=== PATIENT | male | born 1955 | race African-American/Black ===

== ENCOUNTER 2019-11-12 08:04 | Emergency (ER) | payer MEDICARE, SELFPAY ==
[2019-11-12] MEDS ORDERED: Ketorolac Tromethamine 30 MG/ML VIAL ONE (08:48)
--- NOTE | 2019-11-12 09:23 | RAD ---
RADIOGRAPH RIGHT HAND 3VIEWS: DATE: 11/12/2019 HISTORY: 64-year-old male with nontraumatic right hand pain FINDINGS: There is no evidence of fracture or dislocation. There is no evidence of periostitis, permeative lesi on, osteolytic lesion, or osteoblastic lesion. There are mild degenerative changes at the first CMC, first MCP, and all of the DIPs. The rest of the joints appear normal, with no erosions. There ar e no soft tissue calcifications. There is diffuse soft tissue swelling. IMPRESSION: 1. Mild osteoarthrosis. 2. No major osseous abnormalities. 3. Soft tissue swelling.
== END 2019-11-12 10:05 | disposition home or self-care (01) ==
LOC: ERS 08:04
DX: M19.041 Primary osteoarthritis, right hand (principal)
CPT/HCPCS: 96372; J1885

== ENCOUNTER 2020-03-25 09:54 | Outpatient (CLI) | payer MEDICARE ==
--- NOTE | 2020-03-25 10:39 | RAD ---
PA AND LATERAL VIEWS CHEST: Date: 03/25/2020 HISTORY: Chronic obstructive pulmonary disease. FINDINGS: Comparison made with exam of 02/26/2020. The heart size is normal. The aorta is tortuous. The lungs well expanded without lobar consolidation, pneumothoraces, or pleural effusions. There are degenerative changes in the spine. IMPRESSION: No radiographic evidence of acute cardiopulmonary process. POS: AH
--- NOTE | 2020-03-25 10:45 | RAD ---
LUMBAR SPINE 2 VIEWS: Date: 03/25/2020 HISTORY: Low back pain. COMPARISON: 08/21/2016. FINDINGS: Five lumbar-type vertebra are again seen. Multilevel degenerative changes are present, more prominent in the lower lumbar spine. No acute fracture, subluxation, or bony destruction is identified. IMPRESSION: Lumbar spondylosis. POS: AH
== END 2020-03-25 09:55 | disposition home or self-care (01) ==
LOC: BICRAD 09:54
PROVIDERS: ATTEND Specialist
DX: J44.9 Chronic obstructive pulmonary disease, unspecified (principal); M54.5 Low back pain; M47.816 Spondylosis without myelopathy or radiculopathy, lumbar region
CPT/HCPCS: 71046; 72100

== ENCOUNTER 2020-11-25 09:34 | Inpatient (IN) | payer MEDICARE ==
[2020-11-25 10:26] LABS: #Lymphocytes 2.8 thou/uL (1.20-3.40); #Monocytes 0.7 thou/uL (0.11-0.59); %Basophils 0.4 % (0.0-1.0); %Eosinophils 0.1 % (0.0-10.0); %Lymphocytes 26.5 % (21.0-51.0); %Monocytes 6.6 % (0.0-10.0); %Neutrophils 66.3 % (42.0-75.0); Hemoglobin 16.6 g/dL (14.0-18.0); Mean Corpuscular HGB CONC 31.4 g/dL (32.0-36.0); Mean Corpuscular Hemoglobin 29.3 pg (27.0-31.0); Mean Corpuscular Volume 93.3 fL (78.0-98.0); Mean Platelet Volume 6.8 fL (7.4-10.4); Platelet Count 545 thou/uL (130-400); RBC Distribution Width 12.9 % (11.5-14.5); Red Blood Cell (RBC) Count 5.68 mill/uL (4.70-6.10); White Blood Cell (WBC) Count 10.5 thou/uL (4.8-10.8)
[2020-11-25 10:36] LABS: ALT (SGPT) 50 U/L (8-55); AST (SGOT) 33 U/L (5-34); Albumin 4.4 g/dL (3.4-4.8); Alkaline Phosphatase 104 U/L (40-110); Anion Gap 12 mmol/L (10-20); BUN (Urea Nitrogen) 13 mg/dL (8.4-25.7); Bilirubin, Total 0.8 mg/dL (0.2-1.2); Calc. Creatinine Clearance 0 mL/min (70-130); Calcium 9.7 mg/dL (7.8-10.44); Carbon Dioxide 22 mmol/L (23-31); Chloride 107 mmol/L (98-107); Globulin 4.1 g/dL (2.4-3.5); Glucose 102 mg/dL (80-115); Potassium 4.1 mmol/L (3.5-5.1); Protein, Total 8.5 g/dL (5.8-8.1); Sodium 137 mmol/L (136-145)
[2020-11-25] MEDS ORDERED: Acetaminophen 325 MG TAB PO PRN (11:04)
[2020-11-25] MEDS ORDERED: Ondansetron PF 4 MG/2 ML Vial IVP PRN (11:04)
[2020-11-25] MEDS ORDERED: Ondansetron ODT 4 MG TAB PO PRN (11:04)
[2020-11-25] MEDS ORDERED: Calcium Carbonate 500 MG ChewTAB PO PRN (11:04)
[2020-11-25] MEDS ORDERED: Labetalol HCl 100 MG/20 ML VIAL SLOW IVP PRN (11:05)
[2020-11-25] MEDS ORDERED: Aspirin Chewable 81 MG TAB ONE (11:12)
[2020-11-25] MEDS ORDERED: Sodium Chloride 0.9% 1,000 ML IV SCH (11:15)
[2020-11-25 11:17] LABS: Bacteria/HPF None Seen HPF (None Seen); Bilirubin Negative (Negative); Blood, Urine Negative (Negative); Clarity Clear (Clear); Glucose, Urine (Dipstick) Normal (Negative); Ketone, Urine Trace mg/dL (Negative); Leukocyte Negative Leu/uL (Negative); Nitrite Negative (Negative); Protein, Urine (Dipstick) 70 mg/dL (Neg-Trace); RBC/HPF 0-3 HPF (0-3); Specific Gravity, Urine 1.028 (1.002-1.036); Squamous Epithelial None Seen HPF (0-3); Urobilinogen Normal mg/dL (Less than 2); WBC/HPF 0-3 HPF (0-3); pH, Urine 5.5 (5.0-9.0)
[2020-11-25 11:36] LABS: PTT 30.5 sec (22.9-36.1); Prothrombin Time 13.3 sec (12.0-14.7)
[2020-11-25] MEDS ORDERED: Lorazepam 2 MG/ML VIAL ONE (11:36)
[2020-11-25] MEDS ORDERED: Clopidogrel Bisulfate 75 MG TAB PO SCH (13:15)
[2020-11-25] MEDS ORDERED: Clopidogrel Bisulfate 75 MG TAB ONE (14:53)
[2020-11-25 17:27] LABS: SARS-CoV-2 NAA Rapid Test Not Detected (NotDetected)
[2020-11-25] MEDS ORDERED: Famotidine 20 MG TAB ONE (20:59)
[2020-11-25] MEDS ORDERED: Metoprolol Tartrate 25 MG TAB ONE (20:59)
[2020-11-25] MEDS ORDERED: Metoprolol Tartrate 25 MG TAB PO SCH (21:00)
[2020-11-25] MEDS: Atorvastatin Calcium 40 MG TAB PO SCH (21:51)
[2020-11-25] MEDS: Famotidine 20 MG TAB PO SCH (21:51)
[2020-11-25 23:56] VITALS: BMI 27.3
[2020-11-26 05:56] LABS: Cardiac Risk 3.9 (Less than 4.5)
[2020-11-26] MEDS ORDERED: Enoxaparin Sodium 40 MG/0.4 ML SYRINGE SC SCH (09:00)
[2020-11-26] MEDS ORDERED: Aspirin 325 mg Enteric Coated Tablet PO SCH (09:00)
[2020-11-26] MEDS ORDERED: Aspirin 81 mg Enteric Coated Tablet PO SCH (09:00)
[2020-11-26] MEDS ORDERED: Enoxaparin Sodium 30 MG/0.3 ML SYRINGE SC SCH (09:00)
[2020-11-26] MEDS: Multivit, Therapeutic 1 TAB PO SCH (09:26)
[2020-11-26] MEDS: Clopidogrel Bisulfate 75 MG TAB PO SCH (09:26)
[2020-11-26] MEDS: Aspirin 81 mg Enteric Coated Tablet PO SCH (09:26)
[2020-11-26] MEDS: Famotidine 20 MG TAB PO SCH ×2 (09:27→20:52)
[2020-11-26] MEDS: Metoprolol Tartrate 25 MG TAB PO SCH ×2 (09:27→20:53)
[2020-11-26] MEDS: Atorvastatin Calcium 40 MG TAB PO SCH (20:53)
[2020-11-26] MEDS ORDERED: Melatonin 3 MG TAB PO PRN (21:00)
[2020-11-27] MEDS: Famotidine 20 MG TAB PO SCH (08:56)
[2020-11-27] MEDS: Clopidogrel Bisulfate 75 MG TAB PO SCH (08:56)
[2020-11-27] MEDS: Multivit, Therapeutic 1 TAB PO SCH (08:56)
[2020-11-27] MEDS: Aspirin 81 mg Enteric Coated Tablet PO SCH (08:56)
[2020-11-27] MEDS: Metoprolol Tartrate 25 MG TAB PO SCH (08:57)
[2020-11-27] MEDS ORDERED: Enoxaparin Sodium 40 MG/0.4 ML SYRINGE SC SCH (09:00)
[2020-11-27 11:39] VITALS: BP 119/78; TEMP 98.9
== END 2020-11-27 12:20 | disposition home or self-care (01) | DRG 65 ==
LOC: ERS 09:34 → ERHOLD 11:12 → OBSVTOIN 12:40 → 2SE 23:31
PROVIDERS: ADMIT Internal Medicine; ATTEND Internal Medicine
DX: I63.9 Cerebral infarction, unspecified (principal); G81.91 Hemiplegia, unspecified affecting right dominant side; R47.01 Aphasia; Z20.822 Contact with and (suspected) exposure to COVID-19; R29.704 NIHSS score 4; R29.810 Facial weakness; R13.10 Dysphagia, unspecified; E78.00 Pure hypercholesterolemia, unspecified; I10 Essential (primary) hypertension; K21.9 Gastro-esophageal reflux disease without esophagitis; K58.9 Irritable bowel syndrome, unspecified; M19.90 Unspecified osteoarthritis, unspecified site; G89.29 Other chronic pain; D47.3 Essential (hemorrhagic) thrombocythemia; Z91.81 History of falling; Z79.82 Long term (current) use of aspirin; Z79.891 Long term (current) use of opiate analgesic; Z79.899 Other long term (current) drug therapy
CPT/HCPCS: 0240U; 36415; 36416; 70450; 70551; 71045; 80053; 80061; 81003; 81015; 82607; 82746; 83735; 84484; 85025; 85610; 85730; 93005; 93306; 93880; 94760; 96374; G0378; J1650; J2060

== ENCOUNTER 2020-12-24 10:57 | Emergency (ER) | payer MEDICARE | END 2020-12-24 13:01 | LOC: ERS 10:57 | DX: Z53.21 Procedure and treatment not carried out due to patient leaving prior to being seen by health care provider (principal) ==

== ENCOUNTER 2020-12-25 07:04 | Emergency (ER) | payer MEDICARE | END 2020-12-25 09:40 | disposition home or self-care (01) | LOC: ERS 07:04 | DX: N40.1 Benign prostatic hyperplasia with lower urinary tract symptoms (principal); R33.8 Other retention of urine; E78.5 Hyperlipidemia, unspecified; I10 Essential (primary) hypertension | CPT/HCPCS: 99283 ==

== ENCOUNTER 2020-12-28 17:55 | Emergency (ER) | payer MEDICARE ==
[2020-12-28] MEDS ORDERED: Ibuprofen 800 MG TAB ONE (18:38)
[2020-12-28 18:40] LABS: Bilirubin Negative (Negative); Blood, Urine 2+ (Negative); Clarity Turbid (Clear); Glucose, Urine (Dipstick) Normal (Negative); Ketone, Urine Negative (Negative); Leukocyte 500 Leu/uL (Negative); Nitrite Negative (Negative); Protein, Urine (Dipstick) 20 mg/dL (Neg-Trace); RBC/HPF 21-50 HPF (0-3); Specific Gravity, Urine 1.014 (1.002-1.036); Squamous Epithelial None Seen HPF (0-3); Urobilinogen Normal mg/dL (Less than 2); WBC/HPF Greater than 50 HPF (0-3)
[2020-12-28 18:41] LABS: Bacteria/HPF 1+ HPF (None Seen)
[2020-12-28] MEDS ORDERED: cefTRIAXone\\ROCEPHIN 500 MG VIAL ONE (19:29)
[2020-12-28] MEDS ORDERED: Lidocaine 1% PF 5 ML VIAL ONE (19:29)
== END 2020-12-28 20:47 | disposition home or self-care (01) ==
LOC: ERS 17:55
DX: N40.1 Benign prostatic hyperplasia with lower urinary tract symptoms (principal); R33.8 Other retention of urine; N13.8 Other obstructive and reflux uropathy; N39.0 Urinary tract infection, site not specified; Z86.73 Personal history of transient ischemic attack (TIA), and cerebral infarction without residual deficits; E78.5 Hyperlipidemia, unspecified; I10 Essential (primary) hypertension
CPT/HCPCS: 81003; 81015; 87077; 87086; 87186; J0696

== ENCOUNTER 2020-12-30 16:02 | Inpatient (IN) | payer MEDICARE ==
[~2020-12-30 16:02] MED LIST: Iopamidol-370 76% 500 ML 1 ML ONE
[2020-12-30 16:24] LABS: #Basophils 0.2 thou/uL (0.0-0.2); #Eosinphils 0.1 thou/uL (0.0-0.7); #Lymphocytes 1.7 thou/uL (1.20-3.40); #Monocytes 0.2 thou/uL (0.11-0.59); #Neutrophils 13.1 thou/uL (1.40-6.50); %Basophils 1.6 % (0.0-1.0); %Eosinophils 0.7 % (0.0-10.0); %Lymphocytes 11.2 % (21.0-51.0); %Monocytes 1.4 % (0.0-10.0); %Neutrophils 85.1 % (42.0-75.0); Hemoglobin 14.9 g/dL (14.0-18.0); Mean Corpuscular HGB CONC 33.6 g/dL (32.0-36.0); Mean Corpuscular Hemoglobin 31.4 pg (27.0-31.0); Mean Corpuscular Volume 93.4 fL (78.0-98.0); Platelet Count 439 thou/uL (130-400); Red Blood Cell (RBC) Count 4.74 mill/uL (4.70-6.10); White Blood Cell (WBC) Count 15.4 thou/uL (4.8-10.8)
[2020-12-30 16:33] LABS: INR-International Normal Ratio 1.1; Prothrombin Time 13.7 sec (12.0-14.7)
[2020-12-30 16:34] LABS: PTT 27.6 sec (22.9-36.1)
[2020-12-30 16:44] LABS: ALT (SGPT) 44 U/L (8-55); AST (SGOT) 37 U/L (5-34); Albumin 3.9 g/dL (3.4-4.8); Alkaline Phosphatase 92 U/L (40-110); Anion Gap 15 mmol/L (10-20); BUN (Urea Nitrogen) 12 mg/dL (8.4-25.7); Bilirubin, Total 0.8 mg/dL (0.2-1.2); Calc. Creatinine Clearance 0 mL/min (70-130); Calcium 9.6 mg/dL (7.8-10.44); Carbon Dioxide 23 mmol/L (23-31); Chloride 105 mmol/L (98-107); Globulin 4.1 g/dL (2.4-3.5); Glucose 118 mg/dL (80-115); Potassium 3.8 mmol/L (3.5-5.1); Sodium 139 mmol/L (136-145)
[2020-12-30 19:50] LABS: Troponin I Less than 0.010 ng/mL (< 0.028)
[2020-12-30] MEDS ORDERED: Acetaminophen 325 MG Suppository ONE (19:50)
[2020-12-30] MEDS ORDERED: Acetaminophen 325 MG TAB PO PRN (22:01)
[2020-12-30] MEDS ORDERED: Ondansetron PF 4 MG/2 ML Vial IVP PRN (22:01)
[2020-12-30 22:59] LABS: Troponin I Less than 0.010 ng/mL (< 0.028)
[2020-12-30] MEDS: Sodium Chloride 0.9% 1,000 ML IV SCH (23:48)
[2020-12-31 07:50] LABS: #Eosinphils 0.1 thou/uL (0.0-0.7); #Lymphocytes 1.9 thou/uL (1.20-3.40); #Monocytes 1.2 thou/uL (0.11-0.59); %Basophils 0.2 % (0.0-1.0); %Eosinophils 0.4 % (0.0-10.0); %Lymphocytes 10.4 % (21.0-51.0); %Monocytes 6.6 % (0.0-10.0); %Neutrophils 82.3 % (42.0-75.0); Hemoglobin 12.8 g/dL (14.0-18.0); Mean Corpuscular Hemoglobin 30.9 pg (27.0-31.0); Mean Corpuscular Volume 93.7 fL (78.0-98.0); Platelet Count 413 thou/uL (130-400); Red Blood Cell (RBC) Count 4.14 mill/uL (4.70-6.10); White Blood Cell (WBC) Count 18.2 thou/uL (4.8-10.8)
[2020-12-31 08:10] LABS: ALT (SGPT) 37 U/L (8-55); AST (SGOT) 42 U/L (5-34); Albumin 3.3 g/dL (3.4-4.8); Alkaline Phosphatase 76 U/L (40-110); Anion Gap 11 mmol/L (10-20); BUN (Urea Nitrogen) 8 mg/dL (8.4-25.7); Bilirubin, Total 0.8 mg/dL (0.2-1.2); Calc. Creatinine Clearance 113 mL/min (70-130); Calcium 8.5 mg/dL (7.8-10.44); Carbon Dioxide 23 mmol/L (23-31); Chloride 107 mmol/L (98-107); Globulin 3.4 g/dL (2.4-3.5); Glucose 91 mg/dL (80-115); Potassium 3.4 mmol/L (3.5-5.1); Protein, Total 6.7 g/dL (5.8-8.1); Sodium 138 mmol/L (136-145)
[2020-12-31] MEDS ORDERED: cefTRIAXone\\ROCEPHIN 1 GM VIAL ONE (09:04)
[2020-12-31] MEDS: cefTRIAXone\\ROCEPHIN 1 GM in Sodium Chloride 0.9% 100 ML IVPB SCH (09:29)
[2020-12-31 11:42] LABS: SARS-CoV-2 NAA Rapid Test Not Detected (NotDetected)
[2020-12-31] MEDS: Sodium Chloride 0.9% 1,000 ML IV SCH (12:24)
[2020-12-31] MEDS ORDERED: Acetaminophen 325 MG TAB ONE (14:56)
[2021-01-01] MEDS: Atorvastatin Calcium 40 MG TAB PO SCH ×2 (01:00→21:28)
[2021-01-01] MEDS: Sodium Chloride 0.9% 1,000 ML IV SCH ×2 (01:01→20:00)
[2021-01-01 06:47] LABS: Anion Gap 13 mmol/L (10-20); BUN (Urea Nitrogen) 8 mg/dL (8.4-25.7); Calc. Creatinine Clearance 122 mL/min (70-130); Calcium 8.7 mg/dL (7.8-10.44); Carbon Dioxide 22 mmol/L (23-31); Chloride 107 mmol/L (98-107); Glucose 93 mg/dL (80-115); Potassium 3.7 mmol/L (3.5-5.1); Sodium 138 mmol/L (136-145)
[2021-01-01] MEDS: cefTRIAXone\\ROCEPHIN 1 GM in Sodium Chloride 0.9% 100 ML IVPB SCH (09:42)
[2021-01-01] MEDS: Phenazopyridine HCl 100 MG TAB PO SCH ×3 (10:57→18:17)
[2021-01-01 11:27] VITALS: BMI 26.5
[2021-01-01] MEDS ORDERED: ELMIRON FS SCH (21:00)
[2021-01-02 07:34] LABS: #Basophils 0.1 thou/uL (0.0-0.2); #Eosinphils 0.1 thou/uL (0.0-0.7); #Lymphocytes 2.2 thou/uL (1.20-3.40); #Monocytes 1.7 thou/uL (0.11-0.59); #Neutrophils 8.5 thou/uL (1.40-6.50); %Basophils 0.4 % (0.0-1.0); %Lymphocytes 17.3 % (21.0-51.0); %Monocytes 13.8 % (0.0-10.0); %Neutrophils 67.4 % (42.0-75.0); Hemoglobin 12.6 g/dL (14.0-18.0); Mean Corpuscular HGB CONC 33.2 g/dL (32.0-36.0); Mean Corpuscular Hemoglobin 30.8 pg (27.0-31.0); Mean Corpuscular Volume 92.7 fL (78.0-98.0); Mean Platelet Volume 6.7 fL (7.4-10.4); Platelet Count 416 thou/uL (130-400); RBC Distribution Width 13.1 % (11.5-14.5); Red Blood Cell (RBC) Count 4.08 mill/uL (4.70-6.10); White Blood Cell (WBC) Count 12.6 thou/uL (4.8-10.8)
[2021-01-02 07:59] LABS: AST (SGOT) 65 U/L (5-34); Bilirubin, Total 0.9 mg/dL (0.2-1.2); Calcium 8.4 mg/dL (7.8-10.44); Chloride 106 mmol/L (98-107); Potassium 3.5 mmol/L (3.5-5.1); Sodium 138 mmol/L (136-145)
[2021-01-02 08:03] LABS: ALT (SGPT) 48 U/L (8-55); Albumin 3.2 g/dL (3.4-4.8); Alkaline Phosphatase 69 U/L (40-110); Anion Gap 14 mmol/L (10-20); BUN (Urea Nitrogen) 6 mg/dL (8.4-25.7); Calc. Creatinine Clearance 127 mL/min (70-130); Carbon Dioxide 22 mmol/L (23-31); Globulin 3.1 g/dL (2.4-3.5); Glucose 88 mg/dL (80-115); Protein, Total 6.3 g/dL (5.8-8.1)
[2021-01-02] MEDS ORDERED: Tamsulosin HCl 0.4 MG CAP PO SCH (09:00)
[2021-01-02] MEDS: Phenazopyridine HCl 100 MG TAB PO SCH ×3 (09:31→17:45)
[2021-01-02] MEDS: cefTRIAXone\\ROCEPHIN 1 GM in Sodium Chloride 0.9% 100 ML IVPB SCH (09:32)
[2021-01-02] MEDS: Tamsulosin HCl 0.4 MG CAP PO SCH ×2 (09:32→22:17)
[2021-01-02] MEDS ORDERED: Clopidogrel Bisulfate 75 MG TAB PO SCH (17:30)
[2021-01-02] MEDS ORDERED: Aspirin 81 mg Enteric Coated Tablet PO SCH (17:30)
[2021-01-02] MEDS ORDERED: Finasteride 5 MG TAB PO SCH (21:00)
[2021-01-02] MEDS: Atorvastatin Calcium 40 MG TAB PO SCH (22:16)
[2021-01-03] MEDS: Phenazopyridine HCl 100 MG TAB PO SCH ×2 (08:58→13:07)
[2021-01-03] MEDS: Tamsulosin HCl 0.4 MG CAP PO SCH (08:58)
[2021-01-03] MEDS: cefTRIAXone\\ROCEPHIN 1 GM in Sodium Chloride 0.9% 100 ML IVPB SCH (09:00)
[2021-01-03] MEDS ORDERED: Clopidogrel Bisulfate 75 MG TAB PO SCH (09:00)
[2021-01-03] MEDS ORDERED: Aspirin 81 mg Enteric Coated Tablet PO SCH (09:00)
[2021-01-03 12:03] VITALS: TEMP 98.1
[2021-01-03 16:30] VITALS: BP 129/83
== END 2021-01-03 16:52 | disposition home or self-care (01) | DRG 62 ==
LOC: ERS 16:02 → ERHOLD 18:11 → 3SE 12-31 22:09
PROVIDERS: ADMIT Specialist; ATTEND Specialist
DX: I63.512 Cerebral infarction due to unspecified occlusion or stenosis of left middle cerebral artery (principal); N30.00 Acute cystitis without hematuria; T83.511A Infection and inflammatory reaction due to indwelling urethral catheter, initial encounter; N13.8 Other obstructive and reflux uropathy; Z20.822 Contact with and (suspected) exposure to COVID-19; R29.708 NIHSS score 8; E78.5 Hyperlipidemia, unspecified; I10 Essential (primary) hypertension; K21.9 Gastro-esophageal reflux disease without esophagitis; G89.29 Other chronic pain; M54.5 Low back pain; N40.1 Benign prostatic hyperplasia with lower urinary tract symptoms; R35.1 Nocturia; R33.8 Other retention of urine; E55.9 Vitamin D deficiency, unspecified; R29.810 Facial weakness; R47.02 Dysphasia; R47.81 Slurred speech; R47.01 Aphasia; T83.028A Displacement of other urinary catheter, initial encounter; Y84.6 Urinary catheterization as the cause of abnormal reaction of the patient, or of later complication, without mention of misadventure at the time of the procedure; Z87.891 Personal history of nicotine dependence; Z79.899 Other long term (current) drug therapy; Z79.82 Long term (current) use of aspirin; Z79.02 Long term (current) use of antithrombotics/antiplatelets
CPT/HCPCS: 36415; 51702; 70450; 70496; 70498; 70551; 71045; 80048; 80053; 81003; 81015; 84484; 85025; 85610; 85730; 87077; 87086; 87186; 93005; 94760; 95816; 95819; 95957; 96372; J0696; J2997; J3490; J7050; Q9967; U0002

== ENCOUNTER 2021-10-01 04:45 | Emergency (ER) | payer MEDICARE ==
[2021-10-01] MEDS ORDERED: Ketorolac Tromethamine 30 MG/ML VIAL ONE (05:00)
[2021-10-01 05:33] LABS: #Basophils 0.1 thou/uL (0.0-0.2); #Eosinphils 0.1 thou/uL (0.0-0.7); #Lymphocytes 3.6 thou/uL (1.20-3.40); #Monocytes 0.8 thou/uL (0.11-0.59); %Basophils 0.8 % (0.0-1.0); %Eosinophils 1.1 % (0.0-10.0); %Monocytes 7.8 % (0.0-10.0); %Neutrophils 52.4 % (42.0-75.0); Hemoglobin 17.7 g/dL (14.0-18.0); Mean Corpuscular HGB CONC 33.8 g/dL (32.0-36.0); Mean Corpuscular Hemoglobin 31.9 pg (27.0-31.0); Mean Corpuscular Volume 94.4 fL (78.0-98.0); Mean Platelet Volume 6.5 fL (7.4-10.4); Platelet Count 508 thou/uL (130-400); RBC Distribution Width 12.7 % (11.5-14.5); Red Blood Cell (RBC) Count 5.54 mill/uL (4.70-6.10); White Blood Cell (WBC) Count 9.5 thou/uL (4.8-10.8)
[2021-10-01 05:56] LABS: ALT (SGPT) 48 U/L (8-55); AST (SGOT) 42 U/L (5-34); Albumin 4.7 g/dL (3.4-4.8); Alkaline Phosphatase 119 U/L (40-110); Anion Gap 14 mmol/L (10-20); BUN (Urea Nitrogen) 10 mg/dL (8.4-25.7); Bilirubin, Total 1.1 mg/dL (0.2-1.2); Calc. Creatinine Clearance 0 mL/min (70-130); Calcium 9.3 mg/dL (7.8-10.44); Carbon Dioxide 25 mmol/L (23-31); Chloride 106 mmol/L (98-107); Globulin 3.8 g/dL (2.4-3.5); Glucose 91 mg/dL (80-115); Potassium 4.3 mmol/L (3.5-5.1); Protein, Total 8.5 g/dL (5.8-8.1); Sodium 141 mmol/L (136-145)
== END 2021-10-01 06:23 | disposition home or self-care (01) ==
LOC: ERS 04:45
DX: R07.89 Other chest pain (principal); I10 Essential (primary) hypertension; E78.5 Hyperlipidemia, unspecified; Z86.73 Personal history of transient ischemic attack (TIA), and cerebral infarction without residual deficits; Z79.899 Other long term (current) drug therapy
CPT/HCPCS: 36415; 71045; 80053; 84484; 85025; 93005; 96374; J1885

== ENCOUNTER 2022-02-09 13:53 | Emergency (ER) | payer MEDICARE ==
[2022-02-09 14:48] LABS: Bilirubin Negative (Negative); Blood, Urine Negative (Negative); Clarity Clear (Clear); Glucose, Urine (Dipstick) Normal (Negative); Ketone, Urine Negative (Negative); Leukocyte Negative Leu/uL (Negative); Nitrite Negative (Negative); Protein, Urine (Dipstick) Negative (Neg-Trace); Specific Gravity, Urine 1.015 (1.002-1.036); Urobilinogen Normal mg/dL (Less than 2); pH, Urine 6.5 (5.0-9.0)
[2022-02-09 15:07] LABS: #Lymphocytes 1.9 thou/uL (1.20-3.40); #Monocytes 0.4 thou/uL (0.11-0.59); #Neutrophils 7.5 thou/uL (1.40-6.50); %Basophils 0.1 % (0.0-1.0); %Eosinophils 0.3 % (0.0-10.0); %Lymphocytes 19.2 % (21.0-51.0); %Monocytes 4.3 % (0.0-10.0); %Neutrophils 76.1 % (42.0-75.0); Hemoglobin 15.7 g/dL (14.0-18.0); Mean Corpuscular HGB CONC 33.2 g/dL (32.0-36.0); Mean Corpuscular Hemoglobin 30.9 pg (27.0-31.0); Mean Platelet Volume 6.9 fL (7.4-10.4); Platelet Count 456 thou/uL (130-400); RBC Distribution Width 12.7 % (11.5-14.5); White Blood Cell (WBC) Count 9.8 thou/uL (4.8-10.8)
[2022-02-09 16:34] LABS: ALT (SGPT) 32 U/L (8-55); AST (SGOT) 27 U/L (5-34); Albumin 4.1 g/dL (3.4-4.8); Alkaline Phosphatase 107 U/L (40-110); Anion Gap 14 mmol/L (10-20); BUN (Urea Nitrogen) 6 mg/dL (8.4-25.7); Bilirubin, Total 0.9 mg/dL (0.2-1.2); Calc. Creatinine Clearance 0 mL/min (70-130); Calcium 9.2 mg/dL (7.8-10.44); Carbon Dioxide 21 mmol/L (23-31); Chloride 106 mmol/L (98-107); Estimated GFR 97; Globulin 3.5 g/dL (2.4-3.5); Glucose 86 mg/dL (80-115); Potassium 4.1 mmol/L (3.5-5.1); Protein, Total 7.6 g/dL (5.8-8.1); Sodium 137 mmol/L (136-145)
== END 2022-02-09 17:37 | disposition home or self-care (01) ==
LOC: ERS 13:53
DX: R33.9 Retention of urine, unspecified (principal); I10 Essential (primary) hypertension; E78.5 Hyperlipidemia, unspecified; Z79.899 Other long term (current) drug therapy
CPT/HCPCS: 36415; 51702; 80053; 81003; 85025

== ENCOUNTER 2022-06-12 13:26 | Outpatient (CLI) | payer MEDICARE ==
[2022-06-12 15:34] LABS: Hemoglobin 15.1 g/dL (13.5-17.5); Mean Corpuscular HGB CONC 33.6 g/dL (32.0-36.0); Mean Corpuscular Hemoglobin 30.3 pg (27.0-33.0); Mean Platelet Volume 9.5 fl (7.4-10.4); Platelet Count 486 10x3/uL (150-450); RBC Distribution Width 13.9 % (11.5-14.5); Red Blood Cell (RBC) Count 4.99 10x6/uL (4.32-5.72); White Blood Cell (WBC) Count 9.4 10x3/uL (3.5-10.5)
[2022-06-12 15:40] LABS: Prothrombin Time 10.8 sec (9.5-12.1)
[2022-06-12 15:42] LABS: Anion Gap 13 mmol/L (10-20); BUN (Urea Nitrogen) 11 mg/dL (8.4-25.7); Calc. Creatinine Clearance 0 mL/min (70-130); Calcium 9.4 mg/dL (7.8-10.44); Carbon Dioxide 24 mmol/L (23-31); Chloride 107 mmol/L (98-107); Estimated GFR 85; Glucose 96 mg/dL (80-115); Potassium 4.4 mmol/L (3.5-5.1); Sodium 140 mmol/L (136-145)
== END 2022-06-12 13:27 | disposition home or self-care (01) ==
LOC: LABBT 13:26
PROVIDERS: ATTEND Urology
DX: Z01.818 Encounter for other preprocedural examination (principal); N40.1 Benign prostatic hyperplasia with lower urinary tract symptoms; R33.8 Other retention of urine; N52.01 Erectile dysfunction due to arterial insufficiency; R97.20 Elevated prostate specific antigen [PSA]; Z86.73 Personal history of transient ischemic attack (TIA), and cerebral infarction without residual deficits
CPT/HCPCS: 80048; 85027; 85610; 85730; 87086; 93005; 93010

== ENCOUNTER 2022-06-23 06:33 | Day surgery (SDC) | payer MEDICARE ==
[2022-06-22 10:04] VITALS: BMI 26.9
[2022-06-23] MEDS ORDERED: Levofloxacin 500 mg/D5W 100 ml Premix Bag ONE (10:04)
[2022-06-23] MEDS ORDERED: Fentanyl 100 MCG/2 ML VIAL ONE (10:16)
== END 2022-06-23 10:38 | disposition home or self-care (01) ==
LOC: SDC 06:33
PROVIDERS: ATTEND Urology
DX: N40.1 Benign prostatic hyperplasia with lower urinary tract symptoms (principal); R33.8 Other retention of urine; N52.01 Erectile dysfunction due to arterial insufficiency; I10 Essential (primary) hypertension; Z53.09 Procedure and treatment not carried out because of other contraindication; Z86.73 Personal history of transient ischemic attack (TIA), and cerebral infarction without residual deficits; Z79.02 Long term (current) use of antithrombotics/antiplatelets; Z79.2 Long term (current) use of antibiotics; Z79.82 Long term (current) use of aspirin; Z79.899 Other long term (current) drug therapy
CPT/HCPCS: J1956; J3010

== ENCOUNTER 2022-06-29 10:35 | Day surgery (SDC) | payer MEDICARE ==
[2022-06-28 09:20] VITALS: BMI 26.7
[2022-06-29] MEDS ORDERED: Sodium Chloride 0.9% 100 ML ONE (13:20)
[2022-06-29] MEDS ORDERED: cefTRIAXone\\ROCEPHIN 1 GM VIAL ONE (13:20)
[2022-06-29] MEDS ORDERED: Lidocaine 1% MPF 2 ML VIAL ONE (13:20)
[2022-06-29] MEDS ORDERED: PROPOFOL 40 ML ONE (14:36)
[2022-06-29] MEDS ORDERED: Fentanyl 100 MCG/2 ML VIAL ONE (14:36)
[2022-06-29] MEDS ORDERED: Lidocaine 1% PF 5 ML VIAL ONE (14:52)
[2022-06-29] MEDS ORDERED: PROPOFOL 200 MG/20 ML VIAL ONE (14:52)
[2022-06-29] MEDS ORDERED: Phenazopyridine HCl 100 MG TAB ONE ×2 (15:59)
[2022-06-29] MEDS ORDERED: Oxybutynin 5 MG TAB ONE (16:00)
[2022-06-29] MEDS ORDERED: HYDROcodone/Acetaminophen 5/325 mg Tablet ONE ×2 (16:53→17:34)
== END 2022-06-29 19:20 | disposition home or self-care (01) ==
LOC: SDC 10:35
PROVIDERS: ATTEND Urology
PROC: 0T7D8DZ Dilation of Urethra with Intraluminal Device, Via Natural or Artificial Opening Endoscopic (ICD-10-PCS; principal; 2022-06-29)
DX: N40.1 Benign prostatic hyperplasia with lower urinary tract symptoms (principal); N13.8 Other obstructive and reflux uropathy; R33.8 Other retention of urine; N52.01 Erectile dysfunction due to arterial insufficiency; I10 Essential (primary) hypertension; Z86.73 Personal history of transient ischemic attack (TIA), and cerebral infarction without residual deficits; Z79.02 Long term (current) use of antithrombotics/antiplatelets; Z79.82 Long term (current) use of aspirin; Z79.899 Other long term (current) drug therapy
CPT/HCPCS: J0696; J2704; J3010; J3490

== ENCOUNTER 2023-06-14 08:28 | Outpatient (CLI) | payer MEDICARE | END 2023-06-14 08:29 | disposition home or self-care (01) | LOC: BICRAD 08:28 | PROVIDERS: ATTEND Specialist | DX: R05.9 Cough, unspecified (principal) | CPT/HCPCS: 71046 ==